=== PATIENT | male | born 1945 ===

== ENCOUNTER 2023-03-25 15:50 | Inpatient (IN) | payer MEDICARE, SELFPAY ==
[2023-03-25] VITALS (10 sets, daily range): BP systolic 138–190; BP diastolic 57–67; PULSE 54–69; RESP 15–18; TEMP 36–36.6; O2SAT 92–100
--- NOTE | 2023-03-25 15:45 | RT.EKG_ITS ---
APPROVED REPORT Exam: Resting ECG Reason for Exam: Weakness Patient Location: E HR:55 bpm ECG Measurements Heart Rate 55 AXIS NY 182 P 73 QRSd 138 QRS 72 QT 461 T -16 QTc 440 Conclusion Sinus bradycardia...rate< 60 Right bundle branch block...QRSd>120, terminal axis(90,270) Sinus bradycardia at a rate of 55 with right bundle branch block. NY and QTc within normal limits. No acute injury pattern. No prior for comparison.
--- NOTE | 2023-03-25 15:55 | ED.GENADUL_ITS ---
Discharge Plan Disposition Patient Disposition: Admit to [facility] Discharge Details Clinical Impression: Community acquired pneumonia of left lung Admit Date/Time: 03/25/23 20:26 Admit Provider: Anurag Camarillo Attending Provider: Anurag Camarillo Primary Care Provider: Unknown,Unknown ED Provider: Javy Betancourt Discharge Data Discharge Date/Time-TO BE ENTERED AT DEPARTURE: 03/25/23 22:03 Medical Decision Making This is a hypertensive but afebrile and not tachycardic 77-year-old male with general weakness nausea vomiting status post rectal coil in the setting of prostate cancer concerning most likely for dehydration and adverse effects of procedure. No chest pain to suggest ACS. Patient does have a cough and given his weakness and the current increasing COVID will obtain a COVID swab. He had no syncope. No focal neurological deficits to suggest CVA. No chest pain or ischemia on ECG to suggest ACS. No dysuria to suggest UTI. Soft nontender abdomen so I am not concerned for iatrogenic harm secondary to the patient's procedure. No shortness of breath to suggest PE. No pain out of proportion to suggest necrotizing soft tissue infection. Will check basic labs to ensure that patient is not markedly anemic nor does he have an KATHYA. We will also ensure that he does not have any acute electrolyte abnormalities. Patient will require ambulatory and p.o. trial prior to anticipated discharge. Documentation from his procedure indicate that he received levofloxacin this morning and 25 cc of lidocaine for local injection. He is on outpatient dexamethasone. Given his soft nontender abdomen my suspicion for perforation is low so I did not perform a CT scan. 5:15 PM Basic metabolic panel showing mildly elevated mildly elevated BUN. Creatinine within normal limits. No prior for comparison. CBC with no leukocytosis. Mild normocytic anemia. No thrombocytopenia. Chest x-ray read as increased left- sided lung markings concerning for possible infiltrates. COVID influenza and RSV negative. Based on the patient's elevated port score will advise hospitalization. We will treat with ceftriaxone and doxycycline. His port score is 1 19 making him high risk based on his history of cerebrovascular disea se and his history of malignancy and age at 73 and male sex. 8:24 PM I spoke with Dr. Camarillo who agreed graciously to accept the patient for hospitalization. He asked that I place admission orders. Patient reported that he wished to be DNI/DNR. HPI General Date/Time Provider Initiated Documentation: 03/25/23 15:55 . HPI Narrative: This is a 77-year-old male who is approximately 2 and half hours status post gold coil rectal procedure to instill radiation in the setting of prostate cancer. He reportedly felt weak and nauseous. He arrives via paramedics. He has had no pain. He denies chest pain. He denies syncope. He denies routine tobacco ethanol and illicits. He has had no rectal bleeding. He has had 2 donuts this morning before his procedure and had only 2 small crackers following his procedure. He has not taken any falls. He has not received any medications for pain. He is with his . He has had a cough for the past several days. Related Data Allergies Allergy/AdvReac Type Severity Reaction Status Date / Time tamsulosin AdvReac Unverified 03/25/23 17:36 [facility] All Active Problems (Updated 03/26/23 @ 06:23 by Anurag Camarillo) COPD (chronic obstructive pulmonary disease) (Chronic) HTN (hypertension) (Chronic) Diabetes type 2, controlled (Chronic) Community acquired pneumonia of left lung (Acute) Medical History Prostate CA Social History Smoking/Tobacco Use Status: Never Smoking risk assessment performed?: Yes Substance use type: does not use Housing: apartment Exam Narrative Exam Narrative: General: Chronically ill-appearing in no acute distress speaking in complete sentences. Head: Normocephalic, atraumatic. Eye: Pupils equal, round reactive to light. Extraocular eye movements intact. No conjunctival injection. No scleral icterus. Ear, nose, mouth, throat: Grossly normal inspection. Normal voice, handling secretions normally. Neck: Trachea midline. Cardiovascular: Well-perfused distal extremities. Regular slow rhythm. Respiratory: Nonlabored respiration. Clear lungs bilaterally. Gastrointestinal: Nondistended abdomen.Soft nontender abdomen. Musculoskeletal: No edema. Moving all 4 extremities spontaneously. Skin: Normal for age and race, grossly normal temperature and turgor. No acute rash. Neurologic: Alert and appropriate, no apparent acute deficits. Cranial nerves II through XII intact grossly. 5 out of 5 bilateral upper lower extremity strength. Psychiatric: Mood and manner are appropriate. Grooming and personal hygiene are appropriate.
--- NOTE | 2023-03-25 16:15 | DI.RAD_ITS ---
Exam(s) XR PORTABLE CHEST AP EXAM: XR PORTABLE CHEST AP CLINICAL HISTORY: Cough. TECHNIQUE: 2D digital imaging was performed. COMPARISON: No exams were available for comparison FINDINGS: Single AP portable view. Heart size is upper normal. The mediastinum is not widened. Right lung is clear. Increased supra and infrahilar markings on the left side noted. No pleural eff usions. No pulmonary edema. No pneumothorax. IMPRESSION: Increased supra and infrahilar markings in the left lung. Possible infiltrates. There are no pleura l effusions. DATA REPOSITORY: RADIATION DOSE DELIVERED:
[2023-03-25 16:16] LABS: Abs Immature Grans 0.03 10^3/uL (0.0-0.06); Absolute Basophil Count 0.03 10^3/uL (0.0-0.2); Absolute Eosinophil Count 0.17 10^3/uL (0.0-0.7); Absolute Lymphocyte Count 1.75 10^3/uL (1.2-3.4); Absolute Monocyte Count 0.61 10^3/uL (0.1-0.8); Absolute Neutrophil Count 5.45 10^3/uL (1.2-6.7); Basophils % 0.4; Eosinophils % 2.1; HCT 37.9 % (40.0-50.0); Immature Grans % 0.4; Lymphocytes % 21.8; MCH 28.5 pg (27.0-33.0); MCHC 31.7 % (32.0-36.0); MCV 90 fL (80-95); MPV 9.6 fL (8.0-11.0); Monocytes % 7.6; Neutrophils % 67.7; Platelet Count 236 10^3/uL (130-400); RBC 4.21 10^6/uL (4.36-5.78); RDW 12.9 % (11.8-14.1); RDW-SD 42.5 fL; WBC 8.04 10^3/uL (4.4-10.8)
[2023-03-25] MEDS: Normal Saline 500 ML IV (16:16)
[2023-03-25] MEDS: Ondansetron 4 MG/2 ML VIAL IVP (16:22)
[2023-03-25] MEDS: ACETAMINOPHEN 1,000 MG/100 ML BTL 400 MG IVPB (16:22)
[2023-03-25 16:29] LABS: Anion Gap 8.2 mmol/L (3-11); BUN 21 mg/dL (7-18); CO2 27.8 mmol/L (21.0-32.0); CREATININE 1.1 mg/dL (0.70-1.30); Calcium 9.5 mg/dL (8.5-10.1); Chloride 103 mmol/L (98-107); Estimated GFR 68.29 (mL/min/1.73m2); Glucose 182 mg/dL (74-106); Sodium 139 mmol/L (136-145)
[2023-03-25 16:59] LABS: COVID-19 PCR Negative (Negative); Influenza A PCR Negative (Negative); Influenza B PCR Negative (Negative); RSV PCR Negative (Negative)
--- NOTE | 2023-03-25 16:59 | NUR.NOTE ---
Nursing Note: report received from Felipe CABRAL, pt states he still feels weak, IV fluids infused, pt tolerated small sips of water. NAD will continue to monitor
[2023-03-25 17:05] LABS: Source NASOPHARYNX
[2023-03-25] MEDS: Doxycycline Hyclate 100 MG CAP PO (17:20)
[2023-03-25] MEDS: cefTRIAXone 2 GM/50 ML BAG IVPB (17:20)
[2023-03-25] MEDS: Ondansetron O.D.T. 4 MG TABEF PO (18:16)
--- NOTE | 2023-03-25 21:21 | HPE_ITS ---
Date of service: 03/25/23 Time of Service: 21:21 Assessment and Plan Assessment and plan (1) Community acquired pneumonia of left lung: Start date: 03/25/23 Status: Acute Assessment and plan: This is a 77-year-old gentleman with presentation of weakness and nausea and vomiting negative for COVID, flu or RSV but had a positive chest x-ray for left lower lobe infiltrates. He did not have an elevated WBC or fever. He was started on Rocephin and doxycycline which will be continued. He is not requiring oxygen supplement. He is a full code. (2) COPD (chronic obstructive pulmonary disease): Status: Chronic Assessment and plan: Patient does have chronic COPD and is on no treatment. He is not wheezing at this time. (3) Diabetes type 2, controlled: Status: Chronic Assessment and plan: Patient's medications need to be reconciled with pharmacy for now he will have glucometer measurements before meals and at bedtime with short acting insulin coverage. He did state that he is on 2 oral medicines with metformin as one agent. (4) HTN (hypertension): Status: Chronic Assessment and plan: Patient states he does take lisinopril with his dose to be reconciled. For now lisinopril 5 mg daily will be given. History of Present Illness History of Present Illness Chief Complaint: Generalized weakness with nausea and vomiting status post procedure Narrative: This is a 77-year-old male patient who is status post gold coil transrectal placement for radiation treatment of prostate cancer which she has had since September 2022. This procedure was the day of admission with patient presenting to the ED with generalized weakness and nausea and vomiting. He did have a mild cough but no fever. X-ray of the chest was performed and did reveal left lower lobe pneumonia with rest of lab fairly normal. Patient does have a history of diabetes and is on ZENA inhibitor for blood pressure and diabetes. He does take oral therapy for diabetes. He also has a history of COPD but does not take inhalers because of cost but does use Primatene Mist at home. He denies any change in his respiratory status prior to admission. He was negative for viral screening with RSV, flu and COVID-negative. He was initiated on Rocephin and doxycycline and admitted for treatment of left lower lobe pneumonia. He was not significantly hypoxic. Patient is a full code. Review of Systems Narrative: Patient does have chronic insomnia with weight loss unexplained and decreased appetite, otherwise 13 point review of systems unrevealing or stable. He does have occasional cough but does not complain of wheezing. PFSH All Active Problems (Updated 03/26/23 @ 06:23 by Anurag Camarillo) COPD (chronic obstructive pulmonary disease) (Chronic) HTN (hypertension) (Chronic) Diabetes type 2, controlled (Chronic) Community acquired pneumonia of left lung (Acute) Medical History Prostate CA Social History Smoking/Tobacco Use Status: Never Smoking risk assessment performed?: Yes Substance use type: does not use Housing: apartment Meds Allergies and Home Medications Allergies Allergy/AdvReac Type Severity Reaction Status Date / Time tamsulosin AdvReac Unverified 03/25/23 17:36 Exam Narrative Exam Narrative: General: Patient appears appropriate for age, alert and oriented x3 and in no acute distress. HEENT: Normocephalic, eyes with pupils equal reactive to light light symmetrically, extraocular movement intact and sclera anicteric. Oropharynx with moist mucosa and fair dentition. Neck: Supple without JVD. Back: Normal posture, no CVA tenderness. Lungs: Bronchovesicular breath sounds diffusely with decreased aeration left base and occasional expiratory crackle but no focalizing rales or rhonchi. No expiratory wheeze and no increased expiratory phase. Heart: Regular rate and rhythm with no murmurs gallops appreciated. Abdomen: Scaphoid contour, soft nontender to palpation no palpable hepatosplenomegaly. Bowel sounds positive all quadrants. Genitalia/rectal: Exam deferred. Extremities: Without clubbing, cyanosis or pitting edema. Good capillary refill . No joint swelling. Skin: Normal color, warm and dry. Neuro: Cranial nerves II through XII gross intact, no focal motor deficits or tremor. Psych: Normal affect slightly depressed mood. No abnormal thought processes. Remote and recent memory grossly intact. Results Imaging Imaging Studies: EXAM:? XR PORTABLE CHEST AP CLINICAL HISTORY: ? Cough. ? TECHNIQUE:? 2D digital imaging was performed. COMPARISON:? No exams were available for comparison FINDINGS: Single AP portable view. Heart size is upper normal.? The mediastinum is not widened. Right lung is clear.? Increased supra and infrahilar markings on the left side noted.? No pleural effusions.? No pulmonary edema.? No pneumothorax. IMPRESSION: Increased supra and infrahilar markings in the left lung.? Possible infiltrates.? There are no pleural effusions. Labs 03/25/23 16:08 03/25/23 16:08 Labs: Laboratory Results - last 24 hr 03/25/23 03/25/23 03/25/23 16:08 16:08 16:12 WBC 8.04 RBC 4.21 L Hgb 12.0 L Hct 37.9 L MCV 90 MCH 28.5 MCHC 31.7 L RDW 12.9 Plt Count 236 MPV 9.6 Immature Gran % 0.4 Neutrophils % 67.7 Lymphocytes % 21.8 Monocytes % 7.6 Eosinophils % 2.1 Basophils % 0.4 Nucleated RBC % 0.0 Absolute Neutrophils 5.45 Absolute Lymphocytes 1.75 Absolute Monocytes 0.61 Absolute Eosinophils 0.17 Absolute Basophils 0.03 Sodium 139 Potassium 4.0 Chloride 103 Carbon Dioxide 27.8 Anion Gap 8.2 BUN 21 H Creatinine 1.1 Est GFR (CKD-EPI 2020) 68.29 Glucose 182 H Calcium 9.5 COVID-19 Source NASOPHARYNX SARS-CoV-2 (PCR) Negative Influenza Type A (PCR) Negative Influenza Type B (PCR) Negative RSV (PCR) Negative Last Vital Signs Temp 36.4 C L 03/25/23 15:50 Pulse 54 L 03/25/23 18:01 Resp 15 03/25/23 18:01 BP 159/57 H 03/25/23 18:01 Pulse Ox 95 03/25/23 17:51 Time Spent Time spent with Patient: >75 minutes Time was spent: preparing to see the patient(eg.review tests), obtaining and/or reviewing separately otained hiistory, ordering medications,tests, procedures, referring, communicating with other health career development associate, indepentently interpreting results, counseling the patient and care coordination
[2023-03-25] MEDS: Enoxaparin 40 MG/0.4 ML SYR SC (22:15)
[2023-03-25] MEDS: LORazepam 1 MG TAB PO (23:37)
[2023-03-26 04:13] VITALS: BP 145/71; PULSE 62; RESP 18; TEMP 36.3
[2023-03-26] MEDS: DOXYCYCLINE 100 MG in Normal Saline 100 ML IVPB (05:12)
[2023-03-26 07:26] LABS: HCT 36.7 % (40.0-50.0); HGB 11.8 g/dL (13.5-17.5); MCHC 32.2 % (32.0-36.0); MCV 90 fL (80-95); MPV 10.1 fL (8.0-11.0); Platelet Count 229 10^3/uL (130-400); RBC 4.07 10^6/uL (4.36-5.78); RDW 12.6 % (11.8-14.1); RDW-SD 41.8 fL; WBC 7.16 10^3/uL (4.4-10.8)
[2023-03-26 07:44] LABS: ALT 19 U/L (16-63); AST 14 U/L (15-37); Albumin 3.2 g/dL (3.4-5.0); Alkaline Phosphatase 60 U/L (46-116); Anion Gap 9.3 mmol/L (3-11); BUN 18 mg/dL (7-18); Bilirubin, Total 0.6 mg/dL (0.2-1.0); CO2 27.7 mmol/L (21.0-32.0); CREATININE 1.1 mg/dL (0.70-1.30); Calcium 9.3 mg/dL (8.5-10.1); Chloride 105 mmol/L (98-107); Estimated GFR 68.29 (mL/min/1.73m2); Glucose 113 mg/dL (74-106); Magnesium 1.7 mg/dL (1.8-2.4); Potassium 3.5 mmol/L (3.5-5.1); Sodium 142 mmol/L (136-145); Total Protein 6.3 g/dL (6.4-8.2)
[2023-03-26 08:15] VITALS: BP 140/68; PULSE 69; RESP 20; TEMP 36.6; O2SAT 92
[2023-03-26] MEDS: Lisinopril 5 MG TAB PO (08:21)
--- NOTE | 2023-03-26 09:31 | INITIAL_ITS ---
Date of service: 03/26/23 Time of Service: 09:31 Care Management Initial Assmt Initial Assessment REASON FOR HOSPITALIZATION:: Community Acquired Pneumonia PREVIOUS FUNCTIONAL STATUS/SOCIAL/FAMILY SUPPORTS:: Ata lives in [place], [place] with his Emma. He has a step-daughter who resides in [place], [place], and a sister and [id number] in [place]. 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 He shares he frequently traveled for his job and has been to [place] 11 times. Ata is independent with his ADLs at baseline and still drives but only for short distances as back pain makes it difficult for him to sit for long periods of time. CURRENT FUNCTIONAL STATUS:: Ata is sitting up in a chair when CM comes to meet with him. His Emma is present in the room. He reports he is receiving really good care at [facility] but is looking forward to going home. He states he is scheduled to start radiation for prostate cancer in a couple of weeks. His [facility] oncologist is Dr. Tillman. ADVANCE DIRECTIVES:: None on file but patient states he has a Power of Filteration Operator for Healthcare document at home. His , Emma Causey, is appointed as HCA. Has patient been provided with info about the portal/API?: Yes Did the patient sign up for the portal?: No CODE STATUS:: Full Code INSURANCE COVERAGE / FINANCIAL ISSUES:: Medicare CURRENT HOME/COMMUNITY SERVICES/EQUIPMENT:: No home/community services or equipment. Patient is scheduled to begin radiation therapy at [facility] in a couple of weeks. PRIMARY CARE PHYSICIAN:: Cely Wei MD ([facility] - [place], [place]) POTENTIAL DISCHARGE NEEDS:: Follow up appointment with PCP and discharge plan of care. PATIENT/FAMILY EDUCATION NEEDS:: Review of discharge instructions including medications, limitations and follow up plan of care; discuss Ask Me Three and self management. ANTICIPATED BARRIERS TO DISCHARGE:: None identified at this time. TRANSPORTATION:: Via private vehicle with family. PLAN:: Ata will be discharged home with no services when medically cleared by provider. He will follow up with his PCP, oncologist, and plan of care as instructed. He will be transported home by his via private vehicle when ready. CM will continue to follow. PFSH All Active Problems (Updated 03/26/23 @ 12:40 by Salvador Alarcon MD) Prostate CA (Chronic) COPD (chronic obstructive pulmonary disease) (Chronic) HTN (hypertension) (Chronic) Diabetes type 2, controlled (Chronic) Community acquired pneumonia of left lung (Acute) Medical History Prostate CA Social History Smoking/Tobacco Use Status: Never Smoking risk assessment performed?: Yes Substance use type: does not use Housing: apartment
[2023-03-26 10:27] VITALS: BP 177/82; PULSE 62; RESP 19; TEMP 36.2; O2SAT 94
[2023-03-26 12:10] VITALS: PULSE 66; PULSE 69; PULSE 86; RESP 16; RESP 20; RESP 28; O2SAT 89; O2SAT 93; O2SAT 95
--- NOTE | 2023-03-26 12:38 | W.PM.DS.N ---
Date of service: 03/26/23 Time of Service: 12:38 DS: Diagnosis Discharge Diagnosis (1) Community acquired pneumonia of left lung: Status: Acute Asessment and Plan: Left-sided pneumonia, improved after 1 day of IV antibiotics. Sent home with 5 more days of Augmentin. (2) COPD (chronic obstructive pulmonary disease): Status: Chronic Asessment and Plan: Stable on no prescribed inhalers. (3) Diabetes type 2, controlled: Status: Chronic Asessment and Plan: Stable on present meds. (4) HTN (hypertension): Status: Chronic Asessment and Plan: Stable on present meds. (5) Prostate CA: Status: Chronic Asessment and Plan: Patient received coil on 03/25/2023 in anticipation of radiation therapy to be done here at [facility]. Discharge Plan Disposition Patient Disposition: Home Condition: Improving Discharge Details Reason For Visit: Community Aquired Pneumonia Admit Date/Time: 03/25/23 20:26 Admit Provider: Anurag Camarillo Attending Provider: Anurag Camarillo Primary Care Provider: Unknown,Unknown Hospital Course Hospital Course: This is a 77-year-old male patient who is status post gold coil transrectal placement for radiation treatment of prostate cancer which she has had since September 2022.? This procedure was 03/25/2023 by Des Field MD in [place], [place]. The patient presented to the ED with generalized weakness and nausea and vomiting later that day.? He did have a mild cough but no fever.? X-ray of the chest was performed and did reveal left lower lobe pneumonia with the rest of his labs fairly normal.? Patient does have a history of diabetes and is on ZENA inhibitor for blood pressure and diabetes.? He does take oral therapy for diabetes.? He also has a history of COPD but does not take inhalers because of cost but does use Primatene Mist at home.? He denies any change in his respiratory status prior to admission.? He was negative for viral screening with RSV, flu and COVID-negative.? He was initiated on Rocephin and doxycycline and admitted for treatment of left lower lobe pneumonia.? He did well overnight and by morning wanted to go home. A trending O2 sat revealed oxygen saturation running between 91 and 93% with walking. He has not had any fevers. He was due to start dexamethasone 1 mg twice daily 1 day after his procedure. He received 1 dose of dexamethasone prior to discharge. ? Home Meds and New Rx's Prescriptions: New amoxicillin-pot clavulanate [Augmentin] 500-125 mg tablet 1 tab PO BID Qty: 10 0RF Continued dexamethasone 1 mg tablet 1 mg PO BID Patient Comments: TAKE 1 TABLET BY MOUTH TWICE DAILY WITH FOOD FOR 3 DAYS THEN 1 ONCE DAILY FOR 3 DAYS STARTING ONCE YOU GET HOME AFTER THE PROCEDURE Rx Instructions: procedure on 03/25 atorvastatin 40 mg tablet 40 mg PO DAILY Patient Comments: TAKE 1 TABLET BY MOUTH ONCE DAILY IN THE EVENING pioglitazone 30 mg tablet 30 mg PO DAILY Patient Comments: TAKE 1 TABLET BY MOUTH ONCE DAILY metformin 500 mg tablet extended release 24 hr 500 mg PO DAILY Patient Comments: TAKE 1 TABLET BY MOUTH ONCE DAILY lisinopril 2.5 mg tablet 2.5 mg PO DAILY Patient Comments: TAKE 1 TABLET BY MOUTH ONCE DAILY Discharge Instructions Instructions: Community Acquired Pneumonia (DC) Activity:: Activity as Tolerated Equipment/Supplies:: No Equipment Needed Diet:: As Tolerated Discharge Orders Discharge Orders: Discharge Order (Routine); Ordered 03/26/23 Ordered By: Salvador Alarcon DS: Summary Time Spent with Patient providing and/or coordinating discharge services: Greater than 30 minutes Status at Discharge Functional status at discharge: independent ambulation Overall status at discharge: patient is back to baseline Mental Status: mental status grossly normal Speech and Movement: speech and movement normal Mood: congruent mood Affect: normal affect Exam Narrative Exam Narrative: Exam on day of discharge he is sitting upright very active and talkative. He did trending pulse oximetry with a walk around the unit and maintain saturations of 91 to 93%. His breathing is not at all labored. His posterior lung exam sounded clear other than a hint of a crackle at the right base. The left side sounded clear. Psych Mental Status: mental status grossly normal Speech and Movement: speech and movement normal Mood: congruent mood Affect: normal affect DS: Data Vitals/I&O Vitals and I&O: Vital Signs Temperature 36.2 C L 03/26/23 10:27 Temperature Source Tympanic 03/26/23 10:27 Pulse 62 03/26/23 10:27 Pulse Rhythm Regular 03/26/23 08:15 Pulse 54 L 03/25/23 18:01 Respiratory Rate 19 03/26/23 10:27 Respiratory Effort Normal 03/26/23 08:15 Respiratory Depth Shallow 03/26/23 08:15 Respiratory Pattern Normal 03/26/23 08:15 Blood Pressure 177/82 H 03/26/23 10:27 Blood Pressure Mean 96 03/25/23 18:01 Pulse Oximetry 94 03/26/23 10:27 Oxygen Delivery Method Room Air 03/26/23 10:27 Oxygen Flow Rate 0 03/26/23 10:27 Pain Level 0 03/26/23 08:15 Comment BP called over radio 03/26/23 10:27 Intake & Output 03/25/23 03/26/23 03/26/23 23:59 11:59 23:59 Intake Total 650 / 650 20 Output Total 650 / 650 Balance 650 / 650 -630 / -630 Weight 61.689 kg 61.6 kg Intake: IV 650 / 650 Output: Urine 650 / 650 Other: Urine Color Yellow Urine Appearance Clear Comment urinal Voiding Methods Urinal Data Completed and Pending Labs on day of discharge: Labs from last 24 hours 03/26/23 03/26/23 03/25/23 06:47 06:47 16:12 WBC 7.16 RBC 4.07 L Hgb 11.8 L Hct 36.7 L MCV 90 MCH 29.0 MCHC 32.2 RDW 12.6 Plt Count 229 MPV 10.1 Immature Gran % Neutrophils % Lymphocytes % Monocytes % Eosinophils % Basophils % Nucleated RBC % Absolute Neutrophils Absolute Lymphocytes Absolute Monocytes Absolute Eosinophils Absolute Basophils Sodium 142 Potassium 3.5 Chloride 105 Carbon Dioxide 27.7 Anion Gap 9.3 BUN 18 Creatinine 1.1 Est GFR (CKD-EPI 2020) 68.29 Glucose 113 H Calcium 9.3 Magnesium 1.7 L Total Bilirubin 0.6 AST 14 L ALT 19 Alkaline Phosphatase 60 Total Protein 6.3 L Albumin 3.2 L COVID-19 Source NASOPHARYNX SARS-CoV-2 (PCR) Negative Influenza Type A (PCR) Negative Influenza Type B (PCR) Negative RSV (PCR) Negative 03/25/23 03/25/23 16:08 16:08 WBC 8.04 RBC 4.21 L Hgb 12.0 L Hct 37.9 L MCV 90 MCH 28.5 MCHC 31.7 L RDW 12.9 Plt Count 236 MPV 9.6 Immature Gran % 0.4 Neutrophils % 67.7 Lymphocytes % 21.8 Monocytes % 7.6 Eosinophils % 2.1 Basophils % 0.4 Nucleated RBC % 0.0 Absolute Neutrophils 5.45 Absolute Lymphocytes 1.75 Absolute Monocytes 0.61 Absolute Eosinophils 0.17 Absolute Basophils 0.03 Sodium 139 Potassium 4.0 Chloride 103 Carbon Dioxide 27.8 Anion Gap 8.2 BUN 21 H Creatinine 1.1 Est GFR (CKD-EPI 2020) 68.29 Glucose 182 H Calcium 9.5 Magnesium Total Bilirubin AST ALT Alkaline Phosphatase Total Protein Albumin COVID-19 Source SARS-CoV-2 (PCR) Influenza Type A (PCR) Influenza Type B (PCR) RSV (PCR) Imaging Chest x-ray: Attestation: I personally reviewed and interpreted this imaging study as follows: (Right lung is clear. Increased supra and infrahilar markings on the left side noted.) Lab and Radiology Reports: Laboratory Results WBC 7.16 10^3/uL (4.4-10.8) 03/26/23 06:47 RBC 4.07 10^6/uL (4.36-5.78) L 03/26/23 06:47 Hgb 11.8 g/dL (13.5-17.5) L 03/26/23 06:47 Hct 36.7 % (40.0-50.0) L 03/26/23 06:47 MCV 90 fL (80-95) 03/26/23 06:47 MCH 29.0 pg (27.0-33.0) 03/26/23 06:47 MCHC 32.2 % (32.0-36.0) 03/26/23 06:47 RDW 12.6 % (11.8-14.1) 03/26/23 06:47 Plt Count 229 10^3/uL (130-400) 03/26/23 06:47 MPV 10.1 fL (8.0-11.0) 03/26/23 06:47 Immature Gran % 0.4 03/25/23 16:08 Neutrophils % 67.7 03/25/23 16:08 Lymphocytes % 21.8 03/25/23 16:08 Monocytes % 7.6 03/25/23 16:08 Eosinophils % 2.1 03/25/23 16:08 Basophils % 0.4 03/25/23 16:08 Nucleated RBC % 0.0 % (0.0-0.3) 03/25/23 16:08 Absolute Neutrophils 5.45 10^3/uL (1.2-6.7) 03/25/23 16:08 Absolute Lymphocytes 1.75 10^3/uL (1.2-3.4) 03/25/23 16:08 Absolute Monocytes 0.61 10^3/uL (0.1-0.8) 03/25/23 16:08 Absolute Eosinophils 0.17 10^3/uL (0.0-0.7) 03/25/23 16:08 Absolute Basophils 0.03 10^3/uL (0.0-0.2) 03/25/23 16:08 Sodium 142 mmol/L (136-145) 03/26/23 06:47 Potassium 3.5 mmol/L (3.5-5.1) 03/26/23 06:47 Chloride 105 mmol/L (98-107) 03/26/23 06:47 Carbon Dioxide 27.7 mmol/L (21.0-32.0) 03/26/23 06:47 Anion Gap 9.3 mmol/L (3-11) 03/26/23 06:47 BUN 18 mg/dL (7-18) 03/26/23 06:47 Creatinine 1.1 mg/dL (0.70-1.30) 03/26/23 06:47 Est GFR (CKD-EPI 2020) 68.29 (mL/min/1.73m2) 03/26/23 06:47 Glucose 113 mg/dL (74-106) H 03/26/23 06:47 Calcium 9.3 mg/dL (8.5-10.1) 03/26/23 06:47 Magnesium 1.7 mg/dL (1.8-2.4) L 03/26/23 06:47 Total Bilirubin 0.6 mg/dL (0.2-1.0) 03/26/23 06:47 AST 14 U/L (15-37) L 03/26/23 06:47 ALT 19 U/L (16-63) 03/26/23 06:47 Alkaline Phosphatase 60 U/L (46-116) 03/26/23 06:47 Total Protein 6.3 g/dL (6.4-8.2) L 03/26/23 06:47 Albumin 3.2 g/dL (3.4-5.0) L 03/26/23 06:47 COVID-19 Source NASOPHARYNX 03/25/23 16:12 SARS-CoV-2 (PCR) Negative (Negative) 03/25/23 16:12 Influenza Type A (PCR) Negative (Negative) 03/25/23 16:12 Influenza Type B (PCR) Negative (Negative) 03/25/23 16:12 RSV (PCR) Negative (Negative) 03/25/23 16:12 PFSH All Active Problems (Updated 03/26/23 @ 12:40 by Salvador Alarcon MD) Prostate CA (Chronic) COPD (chronic obstructive pulmonary disease) (Chronic) HTN (hypertension) (Chronic) Diabetes type 2, controlled (Chronic) Community acquired pneumonia of left lung (Acute) Medical History Prostate CA Social History Smoking/Tobacco Use Status: Never Smoking risk assessment performed?: Yes Substance use type: does not use Housing: apartment Time Spent with Patient Time Spent with Patient: 45-69 minutes Time was spent: preparing to see the patient(eg.review tests), obtaining and/or reviewing separately otained hiistory, ordering medications,tests, procedures, referring, communicating with other health small animal caretaker, indepentently interpreting results, counseling the patient and care coordination
--- NOTE | 2023-03-26 12:53 | TELEP.MEDR_ITS ---
Date of service: 03/26/23 Time of Service: 12:53 Telepharmacy Home Med Rec Allergies Allergies: tamsulosin Adverse Reaction (Unverified 03/25/23 17:36) Interview Person Interviewed: * Patient's (Emma) Quality Quality of Interview/Accuracy of Medication List: Good Sources Sources used to compile medication list: Patient List Changes made to Home Medication List: ADDITIONS: * Atorvastatin 40mg PO daily * Metformin ER 500mg PO daily * Pioglitazone 30mg PO daily * Lisinopril 2.5mg PO daily DELETIONS: * none CHANGES: * none Additional Notes Additional Notes: * Dexamethasone- prescribed recently for periprocedural use (procedure on 03/25/23) Recommended Changes Recommended Changes(reason for recommendation): * none Attestation: The home medication list is now updated to the best of my knowledge and is ready to be reconciled by the provider. Please contact the TelePharmacy Medication Reconciliation Pharmacist at for any questions.
--- NOTE | 2023-03-26 12:53 | TELEP.MEDREC ---
Date of service: 03/26/23 Time of Service: 12:53 Telepharmacy Home Med Rec Allergies Allergies: tamsulosin Adverse Reaction (Unverified 03/25/23 17:36) Interview Person Interviewed: Patient's (Emma) Quality Quality of Interview/Accuracy of Medication List: Good Sources Sources used to compile medication list: Patient List Changes made to Home Medication List: ADDITIONS: Atorvastatin 40mg PO daily Metformin ER 500mg PO daily Pioglitazone 30mg PO daily Lisinopril 2.5mg PO daily DELETIONS: none CHANGES: none Additional Notes Additional Notes: Dexamethasone- prescribed recently for periprocedural use (procedure on 03/25/23) Recommended Changes Recommended Changes(reason for recommendation): none Attestation: The home medication list is now updated to the best of my knowledge and is ready to be reconciled by the provider. Please contact the TelePharmacy Medication Reconciliation Pharmacist at for any questions.
[2023-03-26] MEDS: Dexamethasone 1 MG TAB PO (13:43)
--- NOTE | 2023-03-26 13:46 | PDOC.CMDIS ---
Date of service: 03/26/23 Time of Service: 13:46 LACE Index Scoring Tool Questions: Length of Stay (in days): 1 Was the patient admitted via the E.D.?: Yes Comorbidities: Chronic Pulmonary Disease and Any Tumor E.D. Visits: 0 Answers: Total Score: 9 Risk of Readmission: Low Risk Care Management Discharge Plan Reason for Hospitalization: Community Acquired Pneumonia Discharge Plan: Ata is discharged home with no services. He will follow up with his PCP, oncologist and discharge plan of care as instructed. He is transported home by his via private vehicle. Patient/Family Education Needs: Review of discharge instructions including medications, limitations and follow up plan of care; discuss Ask Me Three and self management.
== END 2023-03-26 13:57 | disposition home or self-care (01) | DRG 190 ==
LOC: ER 21:12 → MS 21:55
PROVIDERS: Admitting Provider Family Medicine; Emergency Provider Emergency Medicine; Visit Provider Family Medicine
DX: J44.0 Chronic obstructive pulmonary disease with (acute) lower respiratory infection (principal); J18.9 Pneumonia, unspecified organism; I10 Essential (primary) hypertension; E11.9 Type 2 diabetes mellitus without complications; R11.2 Nausea with vomiting, unspecified; R53.1 Weakness; Z79.84 Long term (current) use of oral hypoglycemic drugs; Z96.0 Presence of urogenital implants; C61 Malignant neoplasm of prostate
CPT/HCPCS: 36415; 80048; 80053; 85027; 87637; 93005; 94618; 96365; 96367; 96375; 99285; J1650; 71045; 83735; 85025; 93010; 99223; 99239; J0131; J2405; J8540

== ENCOUNTER 2023-12-28 16:25 | Outpatient (CLI) | payer MEDICARE, SELFPAY ==
[2024-01-01 17:17] LABS: PSA, Ultrasensitive 0.14 ng/mL (<= 7.2)
[2024-01-02 11:54] LABS: Testosterone, Total 447 ng/dL (240-950)
== END 2023-12-28 16:26 | disposition home or self-care (01) ==
LOC: LBO 16:25
PROVIDERS: Visit Provider Radiology Radiation Oncology
DX: C61 Malignant neoplasm of prostate (principal)
CPT/HCPCS: 36415; 84153; 84403